=== PATIENT | male | born 1980 | race Two or more races ===

== ENCOUNTER 2020-12-17 19:32 | Emergency (ER) | payer OTHER, MEDICAID, SELFPAY ==
[2020-12-17 20:07] VITALS: BP 128/86; PULSE 74; RESP 16; TEMP 36.8; O2SAT 98; BMI 29.1
== END 2020-12-18 02:02 | disposition left against medical advice (07) ==
PROVIDERS: Emergency Provider Emergency Medicine; PCP Family Medicine
DX: Z04.1 Encounter for examination and observation following transport accident (principal)
CPT/HCPCS: 99281; 99282

== ENCOUNTER 2023-09-20 08:26 | Outpatient (REF) | payer OTHER, SELFPAY ==
--- NOTE | ~2023-09-20 | XR_ITS ---
EXAMINATION: XR KNEE, LEFT CLINICAL INFORMATION: Left knee pain with hyper mobile patella COMPARISON: None available. TECHNIQUE: Four views of the left knee. FINDINGS: No fracture. Small knee joint effusion may be present. Alignment is anatomic. Joint spaces are maintained. No abnormal soft tissue calcification. XR/XR knee LT 4V IMPRESSION: No acute finding. A small knee joint effusion may be present.
[2023-09-20 14:29] LABS: MANUAL DIFF FLAG NO
[2023-09-20 14:45] LABS: Basophils Percent Auto 0.4 % (0-2); Eosinophils Absolute Auto 0.2 X10*3/uL (0.0-0.4); Eosinophils Percent Auto 3.3 % (0-4); Hematocrit 51.9 % (42.0-52.0); Hemoglobin 17.1 g/dl (14.0-18.0); Imm Gran Abs Auto 0.05 X10*3/uL (0.00-0.03); Imm Gran Pct Auto 0.7 % (0.0-0.4); Lymphocytes Absolute Auto 2.9 X10*3/uL (1.2-4.9); Lymphocytes Percent Auto 39.9 % (20-40); Mean Corpuscular HGB Conc 32.9 g/dl (31.0-36.0); Mean Corpuscular Hemoglobin 28.4 pg (27.0-33.0); Mean Corpuscular Volume 86.1 fL (80.0-98.0); Mean Platelet Volume 11.5 fL (9.4-12.4); Monocytes Absolute Auto 0.6 X10*3/uL (0.1-1.2); Monocytes Percent Auto 8.2 % (2-11); Neutrophils Absolute Auto 3.5 x10*3/uL (2.0-8.3); Neutrophils Percent Auto 47.5 % (45-73); Platelet Count 254 X10*3/uL (160-400); Red Blood Count 6.03 X10*6/uL (4.60-5.80); Red Cell Distribution Width 13.2 % (11.0-16.0); White Blood Count 7.3 X10*3/uL (4.8-10.8)
[2023-09-20 14:51] LABS: Alanine Aminotransferase 46 U/L (0-40); Alkaline Phosphatase 85 U/L (39-117); Anion Gap 14 (12-20); Aspartate Amino Transferase 23 U/L (5-37); Bilirubin Total 0.8 mg/dL (0.0-1.0); Blood Urea Nitrogen 11 mg/dL (9-16); Carbon Dioxide 26 mmol/L (22-29); Chloride 104 mmol/L (96-108); Cholesterol 183 mg/dL (<200); Estimated Glomerular Filt Rate > 60; Glucose Random 74 mg/dL (60-115); HDL Cholesterol 35 mg/dL (>40); LDL Cholesterol Calculated 127 mg/dL (<100); Lipase 21 U/L (8-78); Potassium 3.6 mmol/L (3.3-5.1); Sodium 140 mmol/L (135-145); Total Protein 7.1 g/dL (6.5-8.0); Triglycerides 106 mg/dL (<150)
[2023-09-20 15:12] LABS: TSH reflex Free T4 1.08 uIU/mL (0.32-4.0)
[2023-09-21 08:03] LABS: HIV AB/AG Nonreactive (Nonreactive); HIV Num 1 0.05 S/CO (0.00-0.99); ~HepC Num1 0.11 S/CO (0.00-0.79); ~Hepatitis C Antibody Nonreactive (Nonreactive)
[2023-09-22 03:34] LABS: Immunoglobulin A 231 mg/dL (47-310); Transglutaminase IgA <1.0 U/mL
== END 2023-09-20 08:27 | disposition home or self-care (01) ==
LOC: HO.CHCLDS 08:26
PROVIDERS: Visit Provider Family Medicine
DX: Z00.00 Encounter for general adult medical examination without abnormal findings (principal); R10.9 Unspecified abdominal pain; E66.3 Overweight; M25.562 Pain in left knee; G89.29 Other chronic pain
CPT/HCPCS: 36415; 73564; 80053; 80061; 82784; 83690; 84443; 85025; 86364; 86803; 87389

== ENCOUNTER 2023-09-21 11:35 | Outpatient (REF) | payer OTHER, SELFPAY ==
[2023-09-28 23:03] LABS: Calprotectin, Fecal 12 mcg/g
== END 2023-09-21 11:36 | disposition home or self-care (01) ==
LOC: HO.CHCLNP 11:35
PROVIDERS: Visit Provider Family Medicine
DX: R10.9 Unspecified abdominal pain (principal)
CPT/HCPCS: 83993; 87329; 87338

== ENCOUNTER 2023-11-09 14:00 | Outpatient (RCR) | payer OTHER, SELFPAY | END 2023-12-17 08:21 | disposition home or self-care (01) | LOC: HO.PT 14:00 | PROVIDERS: PCP Family Medicine; Visit Provider Family Medicine | DX: M25.562 Pain in left knee (principal); G89.29 Other chronic pain | CPT/HCPCS: 97110; 97161 ==